=== PATIENT | male | born 1955 | race Caucasian/White ===

== ENCOUNTER 2023-11-12 08:09 | Emergency (ER) | payer MEDICARE, BC ==
[~2023-11-12] VITALS: Ht 177.8 cm; Wt 159.1 kg
[~2023-11-12 08:09] MED LIST: BIAXIN 500MG T500 MG PO; CLARITIN D TAB1 TAB PO; GENTAMICIN180 MG/501 NS; LASIX 20MG TABL20 MG PO; NORCO 325 MG-51 TAB PO; PREDNISONE20 MG PO; PROMETHAZINE V118 M2 PO; SINGULAIR 110 MG/TAB PO
[2023-11-12 08:14] VITALS: TEMP 97.6
[2023-11-12 09:08] LABS: BASO # 0.1 K/mm3 (0.0-0.2); BASO % 0.7 % (0.0-2.0); EOS % 0.3 % (0.0-4.0); GRAN # 7.1 K/mm3 (1.4-6.5); HEMATOCRIT 39.3 % (42.0-52.0); HEMOGLOBIN 12.4 g/dl (13.5-18.0); LYMPH # 1.5 K/mm3 (1.2-3.4); LYMPH % 15.6 % (20.0-51.0); MEAN CELL VOLUME 85 fl (80.0-100.0); MEAN CORPUSCULAR HEMOGLOBIN 27 pg (27-31); MEAN CORPUSCULAR HGB CONC 32 g/dl (33.0-37.0); MEAN PLATELET VOLUME 8.8 fl (7.4-10.4); MONO # 0.7 K/mm3 (0.1-0.6); MONO % 7.8 % (1.7-9.3); PLATELET COUNT 444 K/mm3 (130-400); RED BLOOD COUNT 4.64 M/mm3 (4.20-5.60); REDCELL DISTRIBUTION WIDTH-CV 18.2 % (11.5-14.5)
[2023-11-12 09:23] LABS: ALBUMIN 3.2 g/dL (3.4-4.8); BILIRUBIN,TOTAL 0.3 mg/dL (0.2-1.2); CALCIUM 7.7 mg/dL (8.4-10.2); CREATININE, serum 1.23 mg/dL (0.72-1.25); POTASSIUM 3.6 mEq/L (3.5-4.5); TOTAL PROTEIN 7.9 g/dl (6.2-8.1)
[2023-11-12] MEDS ORDERED: Iohexol 350 - 100 ML VIAL IV ONE (09:36)
[2023-11-12 11:49] VITALS: BP 149/77; PULSE 93
[2023-11-12] MEDS ORDERED: cefTRIAXone 1 G in Water For Injection,Sterile 10 ML IV SCH (16:00)
== END 2023-11-12 11:50 | disposition left against medical advice (07) ==
LOC: COL.ER 08:09 → SURG 11:16 → COL.ER 11:16
PROVIDERS: Personal Emergency Response Attendant
DX: L03.116 Cellulitis of left lower limb (principal); L03.115 Cellulitis of right lower limb; E66.01 Morbid (severe) obesity due to excess calories; Z68.43 Body mass index [BMI] 50.0-59.9, adult
CPT/HCPCS: J0295; Q9967

== ENCOUNTER 2023-11-15 14:45 | Observation (INO) | payer MEDICARE, BC ==
[~2023-11-15] VITALS: Ht 177.8 cm; Wt 138.6 kg
[2023-11-15 15:09] LABS: BASO # 0.1 K/mm3 (0.0-0.2); BASO % 0.7 % (0.0-2.0); EOS # 0.1 K/mm3 (0.0-0.7); EOS % 0.8 % (0.0-4.0); GRAN # 5.5 K/mm3 (1.4-6.5); GRAN % 66.2 % (42.2-75.2); HEMATOCRIT 39.3 % (42.0-52.0); HEMOGLOBIN 12.5 g/dl (13.5-18.0); LYMPH # 1.9 K/mm3 (1.2-3.4); LYMPH % 22.5 % (20.0-51.0); MEAN CELL VOLUME 83 fl (80.0-100.0); MEAN CORPUSCULAR HEMOGLOBIN 26 pg (27-31); MEAN CORPUSCULAR HGB CONC 32 g/dl (33.0-37.0); MEAN PLATELET VOLUME 8.3 fl (7.4-10.4); MONO # 0.8 K/mm3 (0.1-0.6); MONO % 9.1 % (1.7-9.3); PLATELET COUNT 422 K/mm3 (130-400); RED BLOOD COUNT 4.73 M/mm3 (4.20-5.60); REDCELL DISTRIBUTION WIDTH-CV 18.7 % (11.5-14.5)
[2023-11-15 15:21] LABS: ARTERIAL BLD GAS O2 SATURATION 93.5 % (92-100); ARTERIAL BLD GAS TCO2 CT 24.7; ARTERIAL BLOOD GAS BASE EXCESS -0.3 (-2-2); ARTERIAL BLOOD GAS HCO3 23.6 meq/L (22-26); ARTERIAL BLOOD GAS PCO2 35.8 mmHg (35-45); ARTERIAL BLOOD GAS PO2 66.3 mmHg (80-100); ARTERIAL BLOOD GAS pH 7.44 (7.35-7.45)
[2023-11-15 15:22] LABS: ALBUMIN 3.3 g/dL (3.4-4.8); BILIRUBIN,TOTAL 0.3 mg/dL (0.2-1.2); C-REACTIVE PROTEIN 3.98 mg/dL (0.00-0.50); CALCIUM 9.1 mg/dL (8.4-10.2); CREATININE, serum 0.98 mg/dL (0.72-1.25); MAGNESIUM 2.2 mg/dL (1.6-2.6); POTASSIUM 3.9 mEq/L (3.5-4.5); TOTAL PROTEIN 7.8 g/dl (6.2-8.1)
[2023-11-15 15:27] LABS: INR 1.5 (0.8-3.0); PROTHROMBIN TIME 15.8 SECONDS (9.7-12.8)
[2023-11-15 15:43] LABS: TSH w REFLEX 1.746 uIU/mL (0.350-4.940)
[2023-11-15 15:45] LABS: TROPONIN-I 0.041 ng/mL (0.00-0.033)
[2023-11-15] MEDS ORDERED: Doxycycline Monohydrate 100 MG CAP PO SCH (16:39)
[2023-11-15] MEDS ORDERED: Acetaminophen 500 MG TAB PO PRN (16:45)
[2023-11-15] MEDS ORDERED: Ondansetron 4 MG/2 ML VIAL IV PRN (16:45)
[2023-11-15] MEDS ORDERED: ZYRTEC 10MG10 MG PO (16:54)
[2023-11-15] MEDS ORDERED: LASIX 20MG TABL20 MG PO (16:54)
[2023-11-15] MEDS ORDERED: NEURONTIN300 MG/CAP PO (16:55)
[2023-11-15] MEDS ORDERED: DESYREL 50MG50 MG PO (16:56)
[2023-11-15] MEDS ORDERED: PRIL40 PO (16:56)
[2023-11-15] MEDS ORDERED: COUMADIN 5MG5 MG/TAB PO (16:57)
[2023-11-15] MEDS ORDERED: cefTRIAXone 2 G in Water For Injection,Sterile 20 ML IV SCH (17:00)
[2023-11-15] MEDS ORDERED: Albuterol/Ipratropium 3 MG-0.5 MG/3 ML Neb Soln IH PRN (17:15)
[2023-11-15 17:33] VITALS: BP 126/51; PULSE 73; TEMP 98.6
--- NOTE | 2023-11-15 18:10 | NUR ---
Patient arrived to the medical unit room 314. Alert and oriented x 4, denies any pain at this time. Assessment intake completed. Meds given. No further needs at this time. Call light within reach.
[2023-11-15 18:11] VITALS: BP 126/51; PULSE 73; TEMP 97.6
[2023-11-15 18:18] VITALS: BP_SYST 126
[2023-11-15 19:08] VITALS: BP 128/65; PULSE 62
--- NOTE | 2023-11-15 19:17 | NUR ---
Telemetry called day shift charge and reported that HR was in the 140s. This nurse assessed patient. Denies palpitations, dizziness, etc. Sitting in recliner. VS obtained, HR back down to 60s. Ordered EKG. Told RT that we would call for EKG if HR increases again and get it at that time. Called telemetry back, and stated that his HR was 140s for a few minutes, was sinus tachycardia.
[2023-11-15 19:43] VITALS: BP 125/57; PULSE 70; TEMP 97.6
[2023-11-15 20:40] VITALS: BP_SYST 125
[2023-11-15] MEDS ORDERED: Warfarin 5 MG TAB PO SCH (21:00)
[2023-11-15] MEDS ORDERED: Atorvastatin 80 MG TAB PO SCH (21:00)
--- NOTE | 2023-11-15 21:00 | NUR ---
Troponin called to ANAID Howard. No new orders.
--- NOTE | 2023-11-15 22:23 | NUR ---
Patient assessed around 2039. Alert and oriented x 4. Denied pain and discomfort at that time. Did complain of aches to BLE around 2104 and given PRN Acetaminophen at that time. Peripheral INT to left AC. Denies SOB and dyspnea. LS CTA in upper lobes, diminished in lower. HRR. Telemetry in place. BSAx4. 3+ edema BLE. Has gauze/nicole to wounds on BLE. Wound care to see tomorrow. Voices no questions, needs, or concerns at this time. In recliner with call light within reach.
[2023-11-16] VITALS (13 sets, daily range): BP systolic 105–1120; BP diastolic 56–77; PULSE 52–73; TEMP 97.5–98.4
--- NOTE | 2023-11-16 06:11 | NUR ---
Patient slept in recliner. Denies pain and discomfort. Continue to need UA on patient, and patient is aware. Voices no questions, needs, or concerns at this time. Call light within reach.
[2023-11-16 06:32] LABS: BASO # 0.1 K/mm3 (0.0-0.2); BASO % 1.1 % (0.0-2.0); EOS # 0.2 K/mm3 (0.0-0.7); EOS % 3.2 % (0.0-4.0); GRAN % 47.8 % (42.2-75.2); HEMATOCRIT 38.8 % (42.0-52.0); HEMOGLOBIN 12.1 g/dl (13.5-18.0); LYMPH # 2.2 K/mm3 (1.2-3.4); LYMPH % 36.1 % (20.0-51.0); MEAN CELL VOLUME 86 fl (80.0-100.0); MEAN CORPUSCULAR HEMOGLOBIN 27 pg (27-31); MEAN CORPUSCULAR HGB CONC 31 g/dl (33.0-37.0); MEAN PLATELET VOLUME 8.5 fl (7.4-10.4); MONO # 0.7 K/mm3 (0.1-0.6); MONO % 10.8 % (1.7-9.3); PLATELET COUNT 378 K/mm3 (130-400); RED BLOOD COUNT 4.49 M/mm3 (4.20-5.60)
[2023-11-16 06:46] LABS: CALCIUM 8.8 mg/dL (8.4-10.2); CREATININE, serum 0.93 mg/dL (0.72-1.25); MAGNESIUM 2.2 mg/dL (1.6-2.6); POTASSIUM 3.3 mEq/L (3.5-4.5)
[2023-11-16] MEDS ORDERED: Furosemide 40 MG TAB PO SCH (09:00)
[2023-11-16 09:17] LABS: INR 1.4 (0.8-3.0); PROTHROMBIN TIME 15.5 SECONDS (9.7-12.8)
[2023-11-16] MEDS ORDERED: *Potassium Replacement Protocol MC SCH (09:45)
[2023-11-16] MEDS ORDERED: Potassium Bicarbonate/Citrate 20 MEQ Effervescent TAB PO SCH (10:00)
[2023-11-16] MEDS ORDERED: Iohexol 300 - 100 ML VIAL IV ONE (10:24)
[2023-11-16] MEDS ORDERED: NS 100 ML IV SCH (10:25)
[2023-11-16 12:05] LABS: COLLECTION METHOD CLEAN CATCH
[2023-11-16 12:06] LABS: URINE APPEARANCE CLEAR (CLEAR/HAZY); URINE BLOOD NEGATIVE (NEGATIVE); URINE COLOR YELLOW (YELLOW); URINE GLUCOSE NEGATIVE (NEGATIVE); URINE KETONE NEGATIVE (NEGATIVE); URINE NITRATE NEGATIVE (NEGATIVE); URINE PROTEIN(semi-quant) TRACE (NEGATIVE)
--- NOTE | 2023-11-16 14:50 | NUR ---
stockroom worker met with pt to discuss discharge planning. He reports to live with his landlord/ex-girlfriend in [place]. He states they are looking to get into a new apartment. Pt went on to discuss how he needed to go there after he leaves the hospital due to the inability to manage the basement he is in. SW advised he is in Observation Status and he likely is expected to be here for 48 hours, unless something changes. He appeared taken aback about this information when SW advised finding an apartment can take longer than that. SW attempted to discuss status for Medicare to cover a SNF vs private pay. He reports not able to private pay, so SW informed he will just discharge back to his current residence. He sees Dr. Ellis for PCP needs [facility]. He states he typically is independent with ADLS, but is concerned with his current state. He does not use any DME. He does not have a DPOA-HC and declined to create one. Pt reports he has no one left in his family and his only sister passed and had no children. SW verified his contact as his friend, rickie on file. Pt reports the number listed [phone] is his number. Pt states his phone is about and could no obtain her correct phone number. DARRIN updated Dr. Veda Walker on the above conversation and pt should return home. Discharge Plan: home
--- NOTE | 2023-11-16 21:00 | NUR ---
UPON SHIFT ASSESSMENT, ALPESH WAS UP IN BED AND AXO X4. VS ARE WNL AND TELE IS CURRENTLY NS @ 79 BPM. PATIENT DENIES CHEST PAIN OR SOA. BLLE WRAPPED IN ABD AND MIGUEL A-CURRENTLY CDI. PEDAL PULSES DIFFICULT TO LOCATE. PATIENT DENIES NEEDS AT THIS TIME
[2023-11-17] VITALS (11 sets, daily range): BP systolic 105–131; BP diastolic 66–83; PULSE 60–85; TEMP 98–98.8
--- NOTE | 2023-11-17 01:09 | NUR ---
PATIENT REFUSED DRESSING CHANGE, STATED, "I WILL WAIT TILL MORNING, AFTER I SHOWER."
--- NOTE | 2023-11-17 05:13 | NUR ---
CALL PLACED TO [facility]. ALERTED BY TELE THAT PATIENT HAD RATE CHANGE- NOW IN AND OUT OF AFIB. CURRENT RATE 55-65 BPM. NO NEW ORDERS.
[2023-11-17 07:49] LABS: BASO # 0.1 K/mm3 (0.0-0.2); BASO % 1.1 % (0.0-2.0); EOS # 0.2 K/mm3 (0.0-0.7); EOS % 3.6 % (0.0-4.0); GRAN # 2.8 K/mm3 (1.4-6.5); GRAN % 51.1 % (42.2-75.2); HEMOGLOBIN 11.5 g/dl (13.5-18.0); LYMPH # 1.8 K/mm3 (1.2-3.4); MEAN CELL VOLUME 83 fl (80.0-100.0); MEAN CORPUSCULAR HEMOGLOBIN 26 pg (27-31); MEAN CORPUSCULAR HGB CONC 31 g/dl (33.0-37.0); MEAN PLATELET VOLUME 8.4 fl (7.4-10.4); MONO # 0.6 K/mm3 (0.1-0.6); MONO % 10.7 % (1.7-9.3); PLATELET COUNT 313 K/mm3 (130-400); RED BLOOD COUNT 4.39 M/mm3 (4.20-5.60); REDCELL DISTRIBUTION WIDTH-CV 18.7 % (11.5-14.5)
[2023-11-17 07:50] LABS: HEMATOCRIT 36.6 % (42.0-52.0)
[2023-11-17 07:58] LABS: INR 1.4 (0.8-3.0); PROTHROMBIN TIME 14.6 SECONDS (9.7-12.8)
[2023-11-17 08:09] LABS: CALCIUM 8.8 mg/dL (8.4-10.2); CREATININE, serum 0.73 mg/dL (0.72-1.25); POTASSIUM 3.5 mEq/L (3.5-4.5)
[2023-11-17] MEDS ORDERED: Regadenoson 0.08 MG/ML 5 ML SYRINGE IV SCH (08:38)
[2023-11-17] MEDS ORDERED: XARELTO STARTER20 MG PO (10:23)
[2023-11-17] MEDS ORDERED: LIPITOR 80MG80 MG PO (10:24)
[2023-11-17] MEDS ORDERED: ASPIRIN E.C. 8181 MG PO (10:24)
[2023-11-17] MEDS ORDERED: MONODOX100 PO (10:24)
--- NOTE | 2023-11-17 11:20 | NUR ---
MD INFORMED PER SALESPERSON RECREATIONAL VEHICLES PATIENTS NUC TEST NEGATIVE AND PATIENT MAY EAT.
--- NOTE | 2023-11-17 13:20 | NUR ---
patient given discharge isntructions and educaiton. iv removed. ross assisted to dress. patient taken to patient entrance via wheelchair by another rn where he left in stable ocndition with his ride,aury.
--- NOTE | 2023-11-17 16:23 | NUR ---
[employer] was contacted by RN who advised patient is set for discharge but is feeling nervous about managing his dressing changes at home. DARRIN met with patient to discuss Home Health services and also provided Medicare.gov list of agencies. Patient reviewed list and selected [facility]. D[facility]IN contacted [facility] and faxed referral. Beverly, [facility] RN contacted DARRIN and advised they cannot accept as patient needs multiple disciplines and they do not have the staffing needed for this patient. DARRIN attempted to contact patient by phone as he had been discharged and left a detailed message. DARRIN went ahead and faxed referral and orders to [facility] as they have all needed services available (wound care, nursing, PT/OT/ST). Rajesh at [facility] contacted DARRIN and accepted patient.
--- NOTE | 2023-11-17 17:09 | NUR ---
Family Law Specialist was notified by Rajesh at [facility] that she contacted patient to schedule and he declined services.
== END 2023-11-17 13:23 | disposition home or self-care (01) ==
LOC: COL.ER 14:45 → MEDICAL 16:16
PROVIDERS: Emergency Medicine; Physician Assistant; ADMIT Internal Medicine
DX: G93.40 Encephalopathy, unspecified (principal); I21.4 Non-ST elevation (NSTEMI) myocardial infarction; R06.02 Shortness of breath; I26.99 Other pulmonary embolism without acute cor pulmonale; J98.09 Other diseases of bronchus, not elsewhere classified; T14.8XXA Other injury of unspecified body region, initial encounter; L03.119 Cellulitis of unspecified part of limb; I82.513 Chronic embolism and thrombosis of femoral vein, bilateral; R79.1 Abnormal coagulation profile; K21.9 Gastro-esophageal reflux disease without esophagitis; E87.20 Acidosis, unspecified; D64.9 Anemia, unspecified; R41.82 Altered mental status, unspecified; G47.33 Obstructive sleep apnea (adult) (pediatric); I27.20 Pulmonary hypertension, unspecified; Z79.899 Other long term (current) drug therapy; Z79.01 Long term (current) use of anticoagulants
CPT/HCPCS: A9500-JZ; G0378; J0696; J1650; J2785; Q9967